=== PATIENT | female | born 1970 | race African-American/Black ===

== ENCOUNTER 2018-02-09 16:18 | Emergency (ER) | payer BC ==
[~2018-02-09] VITALS: Ht 165.1 cm; Wt 103.9 kg
--- NOTE | ~2018-02-09 | EKG ---
[place] [address] [facility] [place] [address] ELECTROCARDIOGRAM REPORT Name: HO IBARRA Room #: DEP [facility]#: [id number] Admission: 02/09/18 Attend Phys: Discharge: 02/09/18 Date of : 70 Report #: [id number] THIS REPORT FOR: //name// [facility] ED Test Date: 2018-02-09 Test Time: 17:10:17 Pat Name: HO IBARRA Department: Room: Gender: F Plumbing Installer: CARLOS : 1970 Requested By: Rickey Wall Order Number: [id number] MD: Jose High Measurements Intervals [place] Rate: 76 P: 14 CO: 170 QRS: -16 QRSD: 85 T: -7 QT: 371 QTc: 418 Interpretive Statements Sinus rhythm Nonspecific T abnormalities, anterior leads Compared to ECG 07/12/2012 12:44:47 T-wave abnormality still present Electronically Signed On 02-09-2018 19:31:37 CDT by Jose High [email or web address] <ELECTRONICALLY SIGNED> By: Jose High MD, [facility] 02/09/18 193 D: [id number] 09 Jose High MD, FACC /EPI
[~2018-02-09 16:18] MED LIST: CIPROFLOXACIN500 M1 PO; DIFLUCAN150 MG PO; EDARBI80 MG PO; FIORICET 50-321 EACH PO; NOHOMEMEDICATIONS; NORCO 5-325 TA1 EACH PO; PERCOCET 5-3251 EACH PO; PHENERGAN 25 MG25 M1 PO; PRILOSEC40 MG PO; PROMETHAZINE-C120 ML PO; TOPAMAX50 MG PO; ULTRAM 50MG TAB50 MG PO; VALTREX1000 MG PO; ZANTAC 150MG T150 M1 PO; ZANTAC 150MG T150 MG PO; ZOFRAN ODT4 MG PO
[2018-02-09 17:19] LABS: ABSOLUTE NEUTROPHILS 6.9 thou/uL (1.4-8.2); BASOPHILS 1.1 % (0.0-2.0); EOSINOPHILS 0.8 % (0.0-3.0); HEMATOCRIT 42.3 % (37.0-47.0); HEMOGLOBIN 14.3 gm/dL (12.0-15.0); LYMPHOCYTES 24.7 % (24.0-44.0); MCH 29.9 pg (26.0-34.0); MCHC 33.8 g/dL (28.0-37.0); MCV 88.6 fL (80.0-100.0); MONOCYTES 5.7 % (1.0-8.0); PLATELET COUNT 278 thou/uL (150-400); POLYS 67.7 % (36.0-66.0); RBC 4.77 mil/uL (4.20-5.00); RDW 13.4 % (10.5-14.5); WBC 10.2 thou/uL (4.0-11.0)
[2018-02-09 17:30] LABS: ANION GAP 9 mmol/L (7-16); BUN 14 mg/dL (7-18); CALCIUM 9.6 mg/dL (8.5-10.1); CHLORIDE 106 mmol/L (98-107); CO2 24 mmol/L (21-32); GLUCOSE 120 mg/dL (74-106); POTASSIUM 3.8 mmol/L (3.5-5.1); SODIUM 139 mmol/L (136-145)
[2018-02-09 17:34] LABS: TROPONIN-I < 0.04 ng/mL (<0.06)
== END 2018-02-09 18:11 | disposition home or self-care (01) ==
LOC: ER 16:18
PROVIDERS: Nurse Practitioner
DX: I10 Essential (primary) hypertension (principal); K21.9 Gastro-esophageal reflux disease without esophagitis; G43.909 Migraine, unspecified, not intractable, without status migrainosus; Z88.1 Allergy status to other antibiotic agents; Z91.041 Radiographic dye allergy status